=== PATIENT | female | born 1980 | race Caucasian/White ===

== ENCOUNTER → 2016-12-11 | Outpatient (CLI) | payer BC ==
--- NOTE | 2016-12-11 11:13 | RAD ---
Exam performed: CT scan of the head without contrast. Date of Service: 12/11/16. Comparison: No priors Clinical History: Stabbing pain in back of head on the right side for one week, fever with blurred vision. Technique: Helical acquisitions are obtained from the foramen magnum to the vertex without intravenous administration of contrast. Findings: The ventricles are midline without evidence of dilatation. Normal maria-white differentiation is maintained. There is no extra axial fluid collection, intraparenchymal hemorrhage or mass lesion. The visualized portions of the orbits, paranasal sinuses and the mastoid air cells appear clear. The calvarium is intact. Impression: 1. No acute intracranial process detected. PQRS Compliance Statement: One or more of the following individualized dose reduction techniques were utilized for this examination: 1. Automated exposure control 2. Adjustment of the mA and/or kV according to patient size 3. Use of iterative reconstruction technique
== END | disposition home or self-care (01) ==
LOC: CT 09:43
PROVIDERS: ATTEND Physician Assistant
DX: R51 Headache (principal); H53.8 Other visual disturbances; R53.83 Other fatigue; R50.81 Fever presenting with conditions classified elsewhere
CPT/HCPCS: 70450

== ENCOUNTER 2020-12-22 16:23 | Emergency (ER) | payer BC, OTHER ==
[~2020-12-22] VITALS: Ht 167.6 cm; Wt 82.7 kg
--- NOTE | 2020-12-22 16:48 | RAD ---
EXAM: Right ankle, 3 views. HISTORY: Pain. COMPARISON: None. FINDINGS: 3 views of the right ankle are obtained. There is no acute fracture, dislocation or subluxa tion. There is medial ankle soft tissue swelling. The ankle mortise is intact. There is no osteochond ral lesion. IMPRESSION: Medial ankle soft tissue swelling. No acute osseous finding. Electronically signed by: Elvia Sloan MD (12/22/2020 4:46 PM) [id number]
--- NOTE | 2020-12-22 16:49 | PHYS DOC ---
General Adult EDM: Chief Complaint: LOWER EXT PAIN HPI: HPI: Patient is a 40-year-old female who presented to ER for evaluation of right ankle injury. Patient says she was moving some metal locker today, 1 fell down and hit her right ankle. It happened at noon today. Patient has been walking on her right ankle but with pain. Patient is up-to-date on her tetanus vaccination. The pain has became more consistent now so she wanted to make sure she does not have any broken bone. Review of Systems: Review of Systems: Constitutional: Denies fever or chills Eyes: Denies change in visual acuity HENT: Denies nasal congestion or sore throat Respiratory: Denies cough or shortness of breath Cardiovascular: Denies chest pain or edema GI: Denies abdominal pain, nausea, vomiting, bloody stools or diarrhea : Denies dysuria Musculoskeletal: Positive for right ankle pain. Integument: Positive for skin abrasion. Neurologic: Denies headache, focal weakness or sensory changes Endocrine: Denies polyuria or polydipsia Lymphatic: Denies swollen glands Psychiatric: Denies depression or anxiety Physical Exam: PE: Constitutional: Well developed, well nourished, no acute distress, non-toxic appearance. [] HENT: Normocephalic, atraumatic, bilateral external ears normal, oropharynx moist, no oral exudates, nose normal. [] Eyes: PERRLA, EOMI, conjunctiva normal, no discharge. [] Neck: Normal range of motion, no tenderness, supple, no stridor. [] Cardiovascular:Heart rate regular rhythm, no murmur [] Lungs & Thorax: Bilateral breath sounds clear to auscultation [] Abdomen: Bowel sounds normal, soft, no tenderness, no masses, no pulsatile masses. [] Skin: Warm, dry, no erythema, superficial skin abrasion the medial part of right ankle. Back: No tenderness, no CVA tenderness. [] Extremities: No tenderness, no cyanosis, no clubbing, ROM intact, no edema. Right ankle is tender at the medial malleous area, the ankle joint is stable. Neurologic: Alert and oriented X 3, normal motor function, normal sensory function, no focal deficits noted. [] Psychologic: Affect normal, judgement normal, mood normal. [] EKG: EKG: [] Radiology/Procedures: Radiology/Procedures: [address] [address] IMAGING REPORT Signed PATIENT: JAYSON TITUS ACCOUNT: [id number] : 1980 LOCATION: ER AGE: 40 SEX: F EXAM STATUS: PRE ER ORD. PHYSICIAN: ERIC BRITT DO REASON: RIGHT MEDIAL ANKLE INJURY PROCEDURE: ANKLE RIGHT 3V EXAM: Right ankle, 3 views. HISTORY: Pain. COMPARISON: None. FINDINGS: 3 views of the right ankle are obtained. There is no acute fracture, dislocation or subluxation. There is medial ankle soft tissue swelling. The ankle mortise is intact. There is no osteochondral lesion. IMPRESSION: Medial ankle soft tissue swelling. No acute osseous finding. Electronically signed by: Elvia Sloan MD (12/22/2020 4:46 PM) [id number] DICTATED AND SIGNED BY: ELVIA SLOAN MD DATE: 12/22/201645 CC: PCP,NO; ERIC BRITT DO ~MTH0 0 Heart Score: C/O Chest Pain: N/A Risk Factors: Risk Factors: DM, Current or recent (<one month) smoker, HTN, HLP, family history of CAD, obesity. Risk Scores: Score 0 - 3: 2.5% MACE over next 6 weeks - Discharge Home Score 4 - 6: 20.3% MACE over next 6 weeks - Admit for Clinical Observation Score 7 - 10: 72.7% MACE over next 6 weeks - Early Invasive Strategies Course & Med Decision Making: Course & Med Decision Making Pertinent Labs and Imaging studies reviewed. (See chart for details) Patient is a 40-year-old female who presented to ER for evaluation of right ankle injury. X-ray of the right ankle did not show any fracture or dislocation. Patient had a superficial wound on the medial part of her right ankle area, it was cleaned, no tendon injury, and a Band-Aid was applied to the wound. Dragon Disclaimer: Dragon Disclaimer: This electronic medical record was generated, in whole or in part, using a voice recognition dictation system. Departure Departure: Impression: Primary Impression: Contusion of right ankle Additional Impression: Skin abrasion Disposition: 01 HOME / SELF CARE / HOMELESS Condition: STABLE Referrals: PCP,NO (PCP) Patient Instructions: Abrasion, [id number], Contusion Additional Instructions: Thank you for visiting our Emergency Department. We appreciate you trusting us with your care. If any additional problems come up don't hesitate to return to visit us. Please follow up with your primary care provider so they can plan additional care if needed and know about the problem that you had. If symptoms worsen come back to the Emergency Department. Any concerning symptoms that start such as chest pain, shortness of air, weakness or numbness on one side of the body, running high fevers or any other concerning symptoms return to the ER. ERIC BRITT DO December 22, 2020 16:48
[2020-12-22 17:06] VITALS: BP 145/67
== END 2020-12-22 17:05 | disposition home or self-care (01) ==
LOC: ER 16:23
DX: S90.01XA Contusion of right ankle, initial encounter (principal); W20.8XXA Other cause of strike by thrown, projected or falling object, initial encounter; Y93.89 Activity, other specified; Y92.89 Other specified places as the place of occurrence of the external cause; Y99.8 Other external cause status
CPT/HCPCS: 73610; 99283